=== PATIENT | male | born 1960 | race Caucasian/White ===

== ENCOUNTER 2024-11-07 12:25 | Emergency (ER) | payer MEDICAID, SELFPAY ==
[2024-11-07] VITALS (41 sets, daily range): BP systolic 122–191; BP diastolic 78–118; PULSE 120–137; RESP 12–32; TEMP 36.4; O2SAT 91–100
--- NOTE | ~2024-11-07 | CT_ITS ---
Non-contrast Head CT History: Seizure, altered mental status Technique: Axial non-contrast imaging of the brain was performed. Dose reduction technique was used on this scan by utilizing automated exposure control and iterative reconstruction technique. The dose -length product (DLP) was 832.33 mGy-cm. Findings: There is no evidence of intracranial hemorrhage, mass lesion, or acute infarct. There is a coarse calcification in the left parietal lobe. Brain parenchyma otherwise appears normal. The vent ricles and subarachnoid spaces are normal in size. The calvarium appears normal. The visualized par anasal sinuses and mastoid air cells are clear. Impression: No acute abnormality seen. Coarse calcification in the left parietal lobe. Reviewed, dictated and finalized at location . Impression: No acute abnormality seen. Coarse calcification in the left parietal lobe.
--- NOTE | ~2024-11-07 | XR_ITS ---
EXAMINATION: XR chest 1V portable 11/07/2024 12:47 INDICATION: Altered mental status and confusion PROCEDURE: AP portable chest COMPARISON: No prior studies for comparison. FINDINGS: The lungs are clear. The cardiomediastinal silhouette is within normal limits. There are no pleural effusions. There is no pneumothorax suspected. Shallow inspiration with crowding of the pulmonary vessels. IMPRESSION: 1: NO ACUTE CARDIOPULMONARY DISEASE. Reviewed, dictated and finalized at location A.
--- NOTE | 2024-11-07 12:28 | ECG_ITS ---
Test Date: 2024-11-07 12:59:36 Measurements Intervals [place] Rate: 124 P: 0 VA: 0 QRS: -59 QRSD: 142 T: 50 QT: 353 QTc: 508 Interpretive Statements ATRIAL FIBRILLATION WITH RAPID VENTRICULAR RESPONSE INTRAVENTRICULAR CONDUCTION DELAY [130+ ms QRS DURATION] No previous ECG available for comparison Electronically Signed On 11-07-2024 13:43:53 CDT by Jazmin Sales M.D.
--- NOTE | 2024-11-07 12:30 | ED_ITS ---
HPI - Altered Mental Status General Chief Complaint: Altered Mental Status Stated Complaint: SOB Time Seen by Provider: 11/07/24 12:28 Source: family Mode of arrival: wheelchair Limitations: clinical condition History of Present Illness HPI narrative: Patient is a 64-year-old male that presented as a Sb Wong and we removed him from the car with post ictal state. His friend gave him methylene blue to help oxygenate per the history and poison Control was notified. He has been confused throughout his visit but it has gotten better over time. He proceeded to have 3 seizure activities during his hospitalization in the ER. We used Ativan and Keppra IV. He was on seizure precautions. last known well was yesterday morning. Patient is not a tPA candidate. MD complaint: altered mental status, confusion and decreased responsiveness Onset (ago): hour(s) ( One) Timing confirmed by: other ( friend) Severity: moderate Consistency of symptoms: waxing and waning Context: seizure disorder ( Noncompliant with medication) and other ( patient had a seizure and was brought to the emergency room post ictal.) Associated symptoms: denies other symptoms Treatments prior to arrival: other ( none) Related Data Home Medications ?Medication ?Instructions ?Recorded ?Confirmed ?Last Taken ?Type allopurinol 100 mg tablet 100 mg PO DAILY 11/07/24 Unknown History atorvastatin 40 mg tablet (Lipitor) 40 mg PO DAILY 11/07/24 Unknown History ferrous sulfate 325 mg (65 mg 325 mg PO DAILY 11/07/24 Unknown History iron) tablet (FeroSul) folic acid 400 mcg tablet 400 mcg PO DAILY 11/07/24 Unknown History furosemide 40 mg tablet 40 mg PO DAILY PRN swelling 11/07/24 Unknown History hydroxyzine HCl 25 mg tablet 25 mg PO TID PRN anxiety 11/07/24 Unknown History levetiracetam 500 mg tablet 250 mg PO BID 11/07/24 Unknown History (Keppra) lisinopril 40 mg tablet 40 mg PO DAILY 11/07/24 Unknown History metoprolol succinate 50 mg 50 mg PO DAILY 11/07/24 Unknown History tablet,extended release 24 hr pantoprazole 40 mg tablet,delayed 40 mg PO QAM 11/07/24 Unknown History release quetiapine 50 mg tablet 150 mg PO HS 11/07/24 Unknown History spironolactone 25 mg tablet 12.5 mg PO DAILY 11/07/24 Unknown History vitamin B complex 1 cap PO DAILY 11/07/24 Unknown History Allergies Allergy/AdvReac Type Severity Reaction Status Date / Time No Known Allergies Allergy Verified 11/07/24 13:01 Review of Systems 2 Review of Systems: All systems reviewed & are unremarkable except as noted in HPI and below Constitutional: Constitutional: Reports no additional constitutional complaints Eyes: Eyes: Reports no additional eye complaints ENT: Reports system reviewed and no additional complaints, except as documented Cardiovascular: Cardiovascular: Reports no additional cardiovascular complaints Respiratory: Respiratory: Reports no additional respiratory complaints Gastrointestinal: Gastrointestinal: Reports no additional gastrointestinal complaints Genitourinary: Genitourinary: Reports no additional male genitourinary complaints Musculoskeletal: Musculoskeletal: Reports no additional musculoskeletal complaints Integumentary/Breasts: Skin/Breast: Reports system reviewed and no additional complaints, except as docu Neurologic: Reports system reviewed and no additional complaints, except as documented Psychiatric: Psychiatric: Reports no additional psychiatric complaints Endocrine: Endocrine: Reports no additional endocrine complaints Hematologic/Lymphatic: Hematologic/Lymphatic: Reports no additional hematologic/lymphatic complaints Allergic/Immunologic: Allergic/Immunologic: Reports no additional allergic/immunologic complaints Exam 2 Const: General: ill appearing Nutritional Appearance: well nourished L imitations: altered mental status HENMT: Head: normal to inspection Ears: external ears normal F karen/Nose/Sinus: Normal external nose present Eyes: Conjunctivae: conjunctivae normal Pupils: Equal, round and reactive pupils present EOM: EOMs intact bilaterally Neck: Neck: normal visual inspection Chest: Chest palpation & inspection: normal inspection of the chest Resp: Effort & Inspection: normal respiratory effort and not labored A uscultation: clear to auscultation bilaterally and no crackles Cardio: Rate: tachycardic Rhythm: regular rhythm Heart sounds: no murmurs GI: Inspection: non-distended GI Palp: Yes Soft to palpation and No Tenderness to palpation present (GI) Auscultation: normal bowel sounds : General: Yes bladder normal to palpation Back/Spine/Pelvis: Back: no CVA tenderness Skin: General skin exam: pallor Rashes: no rashes Wounds: no wounds Neuro: General: No moves all extremities ( patient presented with a right- sided upper and lower extremity paralysis), no meningeal signs, No no focal motor deficits ( patient presented with a right-sided upper lower extremity paralysis) and CN's II-XI intact bilaterally Cranial nerves: Yes Nystagmus not present Speech: Abnormal speech present ( patient has paucity of speech) Gait exam (Neuro): gait abnormal Other: initial fast exam showed a right upper and lower extremity paralysis that resolved and was positive initially but further after an hour or so it was negative; GCS on presentation was 8 and further was noted to be 12; NIH score initially was 4 and further it was 0 Extrem: General: normal to inspection Psych: Other: patient presented with altered mental status post ictal and continued to be awake alert and oriented times 0 Course Vital Signs Vital signs: Vital Signs Temperature 36.4 C 11/07/24 12:27 Pulse Rate 120 H 11/07/24 12:27 Respiratory Rate 18 11/07/24 12:27 Blood Pressure 169/118 H 11/07/24 12:27 Pulse Oximetry 98 11/07/24 12:27 Oxygen Delivery Room Air 11/07/24 12:27 Temperature 36.4 C 11/07/24 12:27 Pulse Rate 122 H 11/07/24 18:31 Respiratory Rate 20 11/07/24 18:02 Blood Pressure 156/109 H 11/07/24 18:31 Pulse Oximetry 98 11/07/24 20:06 Oxygen Delivery Room Air 11/07/24 18:31 Oxygen Flow Rate 2 11/07/24 16:32 MDM - Altered Mental Status MDM Narrative Medical decision making narrative: patient is a 64-year-old male with seizure disorder and here with breakthrough seizures. We will do a neurological workup transfer patient for further evaluation. Poison control involved for the methylene blue ingestion. He will need to see Cardiology for the tachycardia but at this time the rate has come down with IV fluids and his blood pressure has begun to normalize. Lab Data Attestation: I reviewed the patient's lab results. Lab results narrative: Leukocytosis from marginalization of seizures and lactic acidosis likely from seizures as well. 11/07/24 13:24 11/07/24 13:24 Labs: Lab Results 11/07/24 11/07/24 11/07/24 Range/Units 12:35 13:24 13:31 WBC 15.3 H (4.8-10.8) K/mm3 RBC 4.21 L (4.70-6.10) M/mm3 Hgb 11.0 L (14.0-18.0) g/dL Hct 35.6 L (40.0-54.0) % MCV 84.6 (78.0-102.0) fL MCH 26.1 L (27.0-31.0) pg MCHC 30.9 L (32-36) g/dL RDW 16.5 H (11.6-14.4) % Plt Count 481 H (150-420) K/mm3 MPV 9.5 (8.7-11.0) fl Immature Gran % (Auto) 0.6 H (0.0-0.0) % Neut % (Auto) 85.2 H (50.0-70.0) % Lymph % (Auto) 6.4 L (18.0-42.0) % [place] % (Auto) 7.1 (2.0-11.0) % Eos % (Auto) 0.1 L (1.0-6.0) % Baso % (Auto) 0.6 (0.0-1.0) % Lymph # (Auto) 0.98 L (1.10-4.50) K/mm3 [place] # (Auto) 1.08 H (0.10-0.90) K/mm3 Eos # (Auto) 0.01 L (0.02-0.50) K/mm3 Baso # (Auto) 0.09 (0.00-0.10) K/mm3 Abs Immat Gran (auto) 0.09 H (0.00-0.00) K/mm3 Absolute Neuts (auto) 13.00 H (1.70-7.20) K/mm3 Absolute Nucleated RBC 0.00 (0.00-0.00) K/mm3 Nucleated RBC % 0.0 (0-0.0) % PT 12.2 H (9.50-12.1) Seconds INR 1.1 APTT 24.7 (23.9-30.70) Sec Sodium 132 L (137-145) mmol/L Potassium 3.5 (3.4-5.0) mmol/L Chloride 100 (98-107) mmol/L Carbon Dioxide 20 L (22-30) mmol/L Anion Gap 12 (4-12) mmol/L BUN 7 L (9-20) mg/dL Creatinine 1.12 (0.7-1.3) mg/dL Estim Creat Clear Calc Not Reportable Estimated GFR > 60 (59 - ) Glucose 291 H (65-110) mg/dL Calculated Osmolality 283 L (285-295) mOsm/kg Lactic Acid 5.4 H (0.4-2.0) mmol/L Calcium 7.9 L (8.4-10.2) mg/dL Total Bilirubin 1.2 (0.2-1.3) mg/dL AST 42 (17-59) U/L ALT 27 (6-50) U/L Alkaline Phosphatase 236 H (38-126) U/L Total Creatine Kinase 71 (39-308) U/L Troponin I 10.9 (0.00-60.4) ng/L Total Protein 7.0 (6.3-8.2) g/dL Albumin 3.8 (3.5-5.1) g/dL Urine Color Yellow (Yellow) Urine Appearance Clear (Clear) Urine pH 6.0 (5.0-8.0) Ur Specific Temple 1.015 (1.010-1.020) Urine Protein 2+ H (Negative) Urine Glucose (UA) 3+ H (Negative) Urine Ketones Negative (Negative) Ur Blood (Man) Negative (Negative) Urine Nitrate Negative (Negative) Urine Bilirubin Negative (Negative) Urine Urobilinogen 0.2 (0.2-1.0) mg/dL Leukocyte Esterase Rfl Negative (Negative) DARI/UL Salicylates < 1.0 L (2-20) mg/dL Urine Opiates Screen Negative (Negative) Urine Methadone Screen Negative (Negative) Acetaminophen < 10 L (10-30) ug/mL Ur Barbiturates Screen Negative (Negative) Ur Phencyclidine Scrn Negative (Negative) Ur Amphetamine Screen Negative (Negative) U Benzodiazepines Scrn Negative (Negative) Urine Cocaine Screen Negative (Negative) U Cannabinoids Screen Positive A (Negative) Ethyl Alcohol 5 (0-6) mg/dL 11/07/24 11/07/24 Range/Units 16:46 19:42 WBC (4.8-10.8) K/mm3 RBC (4.70-6.10) M/mm3 Hgb (14.0-18.0) g/dL Hct (40.0-54.0) % MCV (78.0-102.0) fL MCH (27.0-31.0) pg MCHC (32-36) g/dL RDW (11.6-14.4) % Plt Count (150-420) K/mm3 MPV (8.7-11.0) fl Immature Gran % (Auto) (0.0-0.0) % Neut % (Auto) (50.0-70.0) % Lymph % (Auto) (18.0-42.0) % [place] % (Auto) (2.0-11.0) % Eos % (Auto) (1.0-6.0) % Baso % (Auto) (0.0-1.0) % Lymph # (Auto) (1.10-4.50) K/mm3 [place] # (Auto) (0.10-0.90) K/mm3 Eos # (Auto) (0.02-0.50) K/mm3 Baso # (Auto) (0.00-0.10) K/mm3 Abs Immat Gran (auto) (0.00-0.00) K/mm3 Absolute Neuts (auto) (1.70-7.20) K/mm3 Absolute Nucleated RBC (0.00-0.00) K/mm3 Nucleated RBC % (0-0.0) % PT (9.50-12.1) Seconds INR APTT (23.9-30.70) Sec Sodium (137-145) mmol/L Potassium (3.4-5.0) mmol/L Chloride (98-107) mmol/L Carbon Dioxide (22-30) mmol/L Anion Gap (4-12) mmol/L BUN (9-20) mg/dL Creatinine (0.7-1.3) mg/dL Estim Creat Clear Calc Estimated GFR (59 - ) Glucose (65-110) mg/dL Calculated Osmolality (285-295) mOsm/kg Lactic Acid 4.1 H 1.8 (0.4-2.0) mmol/L Calcium (8.4-10.2) mg/dL Total Bilirubin (0.2-1.3) mg/dL AST (17-59) U/L ALT (6-50) U/L Alkaline Phosphatase (38-126) U/L Total Creatine Kinase (39-308) U/L Troponin I (0.00-60.4) ng/L Total Protein (6.3-8.2) g/dL Albumin (3.5-5.1) g/dL Urine Color (Yellow) Urine Appearance (Clear) Urine pH (5.0-8.0) Ur Specific Temple (1.010-1.020) Urine Protein (Negative) Urine Glucose (UA) (Negative) Urine Ketones (Negative) Ur Blood (Man) (Negative) Urine Nitrate (Negative) Urine Bilirubin (Negative) Urine Urobilinogen (0.2-1.0) mg/dL Leukocyte Esterase Rfl (Negative) DARI/UL Salicylates (2-20) mg/dL Urine Opiates Screen (Negative) Urine Methadone Screen (Negative) Acetaminophen (10-30) ug/mL Ur Barbiturates Screen (Negative) Ur Phencyclidine Scrn (Negative) Ur Amphetamine Screen (Negative) U Benzodiazepines Scrn (Negative) Urine Cocaine Screen (Negative) U Cannabinoids Screen (Negative) Ethyl Alcohol (0-6) mg/dL ABG Data ABG results: 11/07/24 13:24 Puncture Site Right radial ABG pH 7.36 ABG pCO2 41.0 ABG pO2 71.3 L ABG HCO3 22.4 L ABG O2 Saturation 93.6 L ABG Base Excess -2.9 L Oxyhemoglobin 92.1 L O2 Delivery Device Nasal cannula O2 Liters/Min 2.0 Imaging Data Attestation: I personally reviewed and interpreted this imaging study as follows: Radiologist's impression: CT scan of the head was negative for acute process chest x-ray negative for acute process ECG Data EKG #1: Attestation: I personally reviewed and interpreted this ECG as follows: ECG completion date: 11/07/24 ECG completion time: 20:23 EKG Interpretation: tachycardia, atrial fibrillation ( paroxysmal and new), PVCs, non-specific ST changes, widened QRS ( IVCD), normal QT and left axis EKG #2: Attestation: I personally reviewed and interpreted this ECG as follows: ECG completion date: 11/07/24 ECG completion time: 20:25 EKG Interpretation: tachycardia, sinus rhythm, no ectopy, non-specific ST changes, widened QRS ( IVCD), normal QT and left axis Discharge Plan Discharge Clinical Impression: Status epilepticus, Acute alteration in mental status, Acidosis, lactic Patient Disposition: Acute Care Hospital Condition: Improved Patient Language: Portuguese Prescriptions: No Action allopurinol 100 mg tablet 100 mg PO DAILY hydroxyzine HCl 25 mg tablet 25 mg PO TID PRN (Reason: anxiety) quetiapine 50 mg tablet 150 mg PO HS folic acid 400 mcg tablet 400 mcg PO DAILY atorvastatin [Lipitor] 40 mg tablet 40 mg PO DAILY vitamin B complex Capsule 1 cap PO DAILY furosemide 40 mg tablet 40 mg PO DAILY PRN (Reason: swelling) pantoprazole 40 mg tablet,delayed release (DR/EC) 40 mg PO QAM lisinopril 40 mg tablet 40 mg PO DAILY metoprolol succinate 50 mg tablet extended release 24 hr 50 mg PO DAILY ferrous sulfate [FeroSul] 325 mg (65 mg iron) tablet 325 mg PO DAILY levetiracetam [Keppra] 500 mg tablet 250 mg PO BID spironolactone 25 mg tablet 12.5 mg PO DAILY Follow-up/Referrals: UNKNOWN,DOCTOR [Primary Care Provider] - Time of Disposition: 20:28
[2024-11-07] MEDS: levETIRAcetam 1000MG/NACL100ML 1,000 MG/100 ML BAG 400 MG IVPB ×4 (13:22→18:03)
[2024-11-07] MEDS: SODIUM CHLORIDE 0.9% IV 1,000 ML 999 ML IV CONT ×3 (13:23→18:32)
[2024-11-07 13:28] LABS: Base Excess ABG -2.9 mmol/L (0-2); HCO3 ABG 22.4 mmol/L (23-29); Oxygen Saturation ABG 93.6 % (95-97); Oxyhemoglobin 92.1 % (94-100); PO2 ABG 71.3 mmHg (80-90); pH ABG 7.36 (7.35-7.45)
[2024-11-07 13:33] LABS: Basophils Absolute Auto 0.09 K/mm3 (0.00-0.10); Basophils Percent Auto 0.6 % (0.0-1.0); Device NASAL CANNULA; Eosinophils Absolute Auto 0.01 K/mm3 (0.02-0.50); Eosinophils Percent Auto 0.1 % (1.0-6.0); Hematocrit 35.6 % (40.0-54.0); Immature Granulocyte Absolute 0.09 K/mm3 (0.00-0.00); Immature Granulocyte Percent A 0.6 % (0.0-0.0); Lymphocytes Absolute Auto 0.98 K/mm3 (1.10-4.50); Lymphocytes Percent Auto 6.4 % (18.0-42.0); Mean Corpuscular HGB Conc 30.9 g/dL (32-36); Mean Corpuscular Hemoglobin 26.1 pg (27.0-31.0); Mean Corpuscular Volume 84.6 fL (78.0-102.0); Mean Platelet Volume 9.5 fl (8.7-11.0); Modified Allen's Test Pass; Monocytes Absolute Auto 1.08 K/mm3 (0.10-0.90); Monocytes Percent Auto 7.1 % (2.0-11.0); Neutrophils Percent Auto 85.2 % (50.0-70.0); Platelet Count Result 481 K/mm3 (150-420); Red Blood Count 4.21 M/mm3 (4.70-6.10); Red Cell Distribution Width 16.5 % (11.6-14.4); Site Drawn RIGHT RADIAL; White Blood Count 15.3 K/mm3 (4.8-10.8)
[2024-11-07 13:46] LABS: Alanine Aminotransferase 27 U/L (6-50); Albumin Level 3.8 g/dL (3.5-5.1); Alkaline Phosphatase 236 U/L (38-126); Anion Gap 12 mmol/L (4-12); Aspartate Amino Transferase 42 U/L (17-59); Bilirubin,Total 1.2 mg/dL (0.2-1.3); Blood Urea Nitrogen 7 mg/dL (9-20); Calcium 7.9 mg/dL (8.4-10.2); Carbon Dioxide 20 mmol/L (22-30); Chloride 100 mmol/L (98-107); Estimated Glomerular Filt Rate > 60; Ethanol 5 mg/dL (0-6); Glucose 291 mg/dL (65-110); Osmolality Calculated 283 mOsm/kg (285-295); Potassium 3.5 mmol/L (3.4-5.0); Sodium 132 mmol/L (137-145)
[2024-11-07 13:48] LABS: INR 1.1; Partial Thromboplastin Time 24.7 Sec (23.9-30.70); Prothrombin Time 12.2 Seconds (9.50-12.1)
[2024-11-07 13:53] LABS: Lactic Acid Reflex 5.4 mmol/L (0.4-2.0); Troponin I 10.9 ng/L (0.00-60.4)
[2024-11-07 14:30] LABS: Appearance Urine Clear (Clear); Bilirubin Urine Negative (Negative); Blood Urine Negative (Negative); Color Urine Yellow (Yellow); Glucose Urine UA 3+ (Negative); Ketones Urine Negative (Negative); Leukocyte Esterase Ur Negative LEU/UL (Negative); Nitrate Urine Negative (Negative); Protein Urine 2+ (Negative); Specific Grav Ur 1.015 (1.010-1.020); Urobilinogen Urine 0.2 mg/dL (0.2-1.0)
[2024-11-07 14:36] LABS: Add Urine Microscopic? NO
[2024-11-07 14:47] LABS: Amphetamine Screen Urine Negative (Negative); Barbiturate Screen Urine Negative (Negative); Benzodiazepines Screen Urine Negative (Negative); Cannabinoid Screen Urine Positive (Negative); Cocaine Screen Urine Negative (Negative); Methadone Screen Urine Negative (Negative); Opiate Screen Urine Negative (Negative); Phencyclidine Screen Urine Negative (Negative)
[2024-11-07] MEDS: LORazepam INJ (*CRX) 2 MG/ML VIAL 1 MG IV PUSH ×2 (15:30→15:44)
[2024-11-07] MEDS: SODIUM BICARBONATE 8.4% 50 MEQ/50 ML SYRINGE IV PUSH (15:30)
[2024-11-07 15:31] LABS: Reflex Lactic Acid Yes or No Add Lactic
[2024-11-07 15:32] LABS: Acetaminophen < 10 ug/mL (10-30); Salicylate < 1.0 mg/dL (2-20)
[2024-11-07 15:36] LABS: Creatine Kinase 71 U/L (39-308)
[2024-11-07 17:08] LABS: Lactic Acid 4.1 mmol/L (0.4-2.0)
--- NOTE | 2024-11-07 18:54 | PC.NURSE ---
1245 opened a case with poison control case # [id number] pt took methylene blue 10 mg and arrived post seizure in private vehicle 1522 poison control called and new orders received for labs and will call back 1850 poison control checked in again and new orders received needing repeat EKG
--- NOTE | 2024-11-07 19:05 | ECG_ITS ---
Test Date: 2024-11-07 19:13:35 Measurements Intervals [place] Rate: 116 P: 59 CO: 165 QRS: -38 QRSD: 133 T: 36 QT: 345 QTc: 480 Interpretive Statements SINUS TACHYCARDIA LEFT AXIS DEVIATION [QRS AXIS < -30] INTRAVENTRICULAR CONDUCTION DELAY [130+ ms QRS DURATION] SEPTAL MYOCARDIAL INFARCTION , OF INDETERMINATE AGE [40+ ms Q WAVE IN V1/V2] No previous ECG available for comparison Electronically Signed On 11-07-2024 21:56:31 CDT by Modesta Givens M.D.
[2024-11-07 20:04] LABS: Lactic Acid Reflex 1.8 mmol/L (0.4-2.0)
--- NOTE | 2024-11-07 20:33 | PC.NURSE ---
ERP aware of pt's vitals. No new orders. Pt cleared for transfer.
--- NOTE | 2024-11-09 13:19 | PC.NURSE ---
Preliminary blood culture report; no growth to date.
== END 2024-11-07 20:40 | disposition short-term general hospital (02) ==
PROVIDERS: Emergency Provider Emergency Medicine
DX: G40.901 Epilepsy, unspecified, not intractable, with status epilepticus (principal); R41.82 Altered mental status, unspecified; E87.20 Acidosis, unspecified; Z91.148 Patient's other noncompliance with medication regimen for other reason
CPT/HCPCS: 36415; 36600; 70450; 71045; 80053; 80143; 80179; 80307; 81003; 82077; 82550; 82805; 83605; 84484; 85025; 85610; 85730; 87040; 93005; 96361; 96374; 96375; 96376; 99285; J1953; J2060; J7030